=== PATIENT | male | born 1955 | race Caucasian/White ===

== ENCOUNTER 2016-12-02 13:10 | Emergency (ER) | payer SELFPAY ==
[2016-12-02 13:26] VITALS: RESP 16; TEMP 97.9
--- NOTE | 2016-12-02 13:29 | EDPHY ---
H & P Time Seen by Provider: 12/02/16 13:16 HPI/ROS: Chief Complaint: Leg swelling HPI: 61-year-old male with a history of lymphoma 10 years ago and intermittent right leg swelling secondary to lymph node surgery is presenting with 2 days of right leg pain and swelling. Patient has been treated with Lasix and potassium in the past but is not currently on these. No recent traumas or falls. Pain is been worsening his right thigh. No fevers or chills. No chest pain or palpitations. He is currently taking medications. ROS: 10 point Review of Systems is negative except as noted in the HPI. PMH: Lymphoma Social History: Denies smoking, no alcohol, no recreational drug use Family History: non-contributory Physical Exam: Gen: Awake, Alert, No Distress HEENT: Nose: no rhinorrhea Eyes: PERRLA, EOMI Mouth: Moist mucosa Neck: Supple, no JVD Chest: nontender, lungs clear to auscultation Heart: S1, S2 normal, no murmur Abd: Soft, non-tender, no guarding Back: no CVA tenderness, no midline tenderness Ext: Right thigh is moderately swollen compared to the left who is not firm. It is tender to the touch. He has scars from his lymph node resection in his inguinal region. He has calves are symmetric. Mild bilateral tenderness. There is no pitting edema. Sensations intact in all dermatomes. 2+ DP pulses. Skin: no rash Neuro: CN II-XII intact, Sensation grossly intact, Strength 5/5 in bilateral upper and lower extremities Constitutional: Initial Vital Signs Temperature (C) 36.6 C 12/02/16 13:20 Heart Rate 85 12/02/16 13:20 Respiratory Rate 16 12/02/16 13:20 Blood Pressure 152/76 H 12/02/16 13:20 O2 Sat (%) 96 12/02/16 13:20 O2 Delivery Mode Room Air Allergies/Adverse Reactions: No Known Allergies Allergy (Verified 12/02/16 13:19) Home Medications: Medication Instructions Recorded Furosemide [Lasix 40 MG (*)] 40 mg PO DAILY #30 tab 12/02/16 Hydrocodone/Acetaminophen 1 each PO Q6 PRN #20 tablet 12/02/16 [Hydrocodon-Acetaminophn 10-325] Potassium Chloride 20 meq PO DAILY #30 tablet.er 12/02/16 Medical Decision Making - Diagnostics Imaging Results: No DVT proximal to the knee per Radiology. Unable to visualize the peroneal vein. ED Course/Re-evaluation: Patient has symptoms consistent with chronic lymphedema secondary to lymph node dissection. No DVT on ultrasound. Will start him back on Lasix with potassium. Will give him some [place] for pain. He states that as work for him. He will follow up with his physician when he returns home. I have reviewed prescription drug database. There are no records for him being on scheduled medications. Departure - Departure Disposition: Home, Routine, Self-Care Clinical Impression: Lymphedema Condition: Good Instructions: Lymphedema (ED) Additional Instructions: Elevate your leg as much as possible. You can also wrap it with an [place] wrap. Resume taking Lasix, 40 mg once a day. Take this in the morning. Resume taking potassium supplements daily. You may take [place] as needed for pain. Follow up with your primary care physician when you return home to [facility]. Referrals: NONE *PRIMARY CARE P,. [Primary Care Provider] - As per Instructions Prescriptions: Furosemide [Lasix 40 MG (*)] 40 mg PO DAILY #30 tab Hydrocodone/Acetaminophen [Hydrocodon-Acetaminophn 10-325] 1 each PO Q6 PRN #20 tablet PRN Reason: Pain, Severe Potassium Chloride 20 meq PO DAILY #30 tablet.er
[2016-12-02 14:55] VITALS: BP 122/75; PULSE 78; O2SAT 97
== END 2016-12-02 14:40 | disposition home or self-care (01) ==
LOC: CED 13:10
DX: I89.0 Lymphedema, not elsewhere classified (principal)
CPT/HCPCS: 93971-PO